=== PATIENT | male | born 1950 | race Caucasian/White ===

== ENCOUNTER 2017-06-05 11:04 | Emergency (ER) | payer MEDICARE, BC ==
[2017-06-05 11:34] VITALS: BP 137/78
[2017-06-05] MEDS ORDERED: Rabies Immune Globulin 10 ML* 150 UNIT/ML VIAL IM ONE (11:42)
[2017-06-05] MEDS ORDERED: Rabies Vaccine, PCEC INJ* 1 ml IM ONE (11:42)
--- NOTE | 2017-06-05 11:43 | UC ---
Bite Injury/Animal HPI - HPI Summary HPI Summary: here for rabies prophylaxis bat in house yesterday - History of Current Complaint Chief Complaint: UCBiteInjury Stated Complaint: RABIES EXPOSURE Time Seen by Provider: 06/05/17 11:42 Hx Obtained From: Patient - Allergies/Home Medications Allergies/Adverse Reactions: Allergies Allergy/AdvReac Type Severity Reaction Status Date / Time No Known Allergies Allergy Verified 10/08/16 17:53 PMH/Surg Hx/FS Hx/Imm Hx Previously Healthy: Yes - Surgical History Surgical History: None - Family History Known Family History: Positive: Hypertension - Social History Alcohol Use: Weekly Substance Use Type: None Smoking Status (MU): Never Smoked Tobacco - Immunization History Most Recent Influenza Vaccination: doesn't get Review of Systems Constitutional: Negative Skin: Negative Eyes: Negative ENT: Negative Respiratory: Negative Cardiovascular: Negative Gastrointestinal: Negative Genitourinary: Negative Motor: Negative Neurovascular: Negative Musculoskeletal: Negative Neurological: Negative Psychological: Negative All Other Systems Reviewed And Are Negative: Yes Physical Exam Triage Information Reviewed: Yes Vital Signs: Initial Vital Signs Temp 98.2 F 06/05/17 11:32 Pulse 50 06/05/17 11:32 Resp 16 06/05/17 11:32 BP 137/78 06/05/17 11:32 Pulse Ox 97 06/05/17 11:32 Vital Signs Reviewed: Yes Respiratory: Positive: Lungs clear, Normal breath sounds, No respiratory distress Cardiovascular: Positive: RRR, No Murmur Bite Injury Course/Dx - Differential Dx/Diagnosis Provider Diagnoses: rabies prophylaxis Discharge - Discharge Plan Condition: Stable Disposition: HOME Patient Education Materials: Rabies Immune Globulin (By injection), Rabies Vaccine (By injection) Referrals: Estrada Torres MD [Primary Care Provider] - Additional Instructions: Please review your discharge instructions. If your symptoms do not improve please call your primary care provider or return to urgent care.
[2017-06-05] MEDS ORDERED: Rabies VIRUS VACCINE, HDCV* 2.5 UNIT/ML 1 ML IM ONE (12:28)
== END 2017-06-05 12:30 | disposition home or self-care (01) ==
LOC: UCEAST 11:04
DX: Z20.3 Contact with and (suspected) exposure to rabies (principal)
CPT/HCPCS: 90375; 90471; 90675; 96372; 99211; G0463

== ENCOUNTER 2019-04-21 13:20 | Emergency (ER) | payer MEDICARE, BC ==
[2019-04-21 13:36] VITALS: BP 115/73
--- NOTE | 2019-04-21 13:48 | UC ---
Elbow Pain - HPI Summary HPI Summary: right elbow pain / swelling x 5 days pain is 4 out of 10 , worse by touch , better, with rest, and ice no known injury , back of the elbow is red, swollen , painful , warm to touch was getting better , but worse since yesterday and today no fever, no chills - History of Current Complaint Chief Complaint: UCSkin Stated Complaint: RT ELBOW PAIN Time Seen by Provider: 04/21/19 13:34 Hx Obtained From: Patient Mechanism of Injury: no injury Onset/Duration: Days - 5, Atraumatic Severity Initially: Mild Severity Currently: Mild Pain Intensity: 2 Location Of Pain: Is Discrete @ - right elbow Character: Aching Aggravating Factor(s): Movement Alleviating Factor(s): Rest Associated Signs And Symptoms: Positive: Swelling, Redness. Negative: Bruising , Fever, Weakness, Numbness/Tingling - Allergies/Home Medications Allergies/Adverse Reactions: Allergies Allergy/AdvReac Type Severity Reaction Status Date / Time No Known Allergies Allergy Verified 04/21/19 13:31 PMH/Surg Hx/FS Hx/Imm Hx Previously Healthy: Yes - Surgical History Surgical History: None Surgery Procedure, Year, and Place: DENIES - Family History Known Family History: Positive: Hypertension - Social History Alcohol Use: Weekly Alcohol Amount: Three drinks per week Substance Use Type: None Smoking Status (MU): Never Smoked Tobacco - Immunization History Most Recent Influenza Vaccination: doesn't get Review of Systems All Other Systems Reviewed And Are Negative: Yes Is Patient Immunocompromised?: No Physical Exam Triage Information Reviewed: Yes Appearance: Well-Appearing, No Pain Distress, Well-Nourished Vital Signs: Initial Vital Signs Temp 98.5 F 04/21/19 13:27 Pulse 59 04/21/19 13:27 Resp 18 04/21/19 13:27 BP 115/73 04/21/19 13:27 Pulse Ox 96 04/21/19 13:27 Vital Signs Reviewed: Yes Eye Exam: Normal Eyes: Positive: Conjunctiva Clear ENT: Positive: Normal ENT inspection, Hearing grossly normal Neck: Positive: Supple, Nontender, No Lymphadenopathy Respiratory: Positive: Chest non-tender, Lungs clear, Normal breath sounds Cardiovascular: Positive: RRR, No Murmur, Pulses Normal Musculoskeletal: Positive: Other: - right elbow: + erythema, swellig, tender to touch , warm to touch, good ROM Elbow Pain Course/Dx - Differential Dx/Diagnosis Provider Diagnosis: Olecranon bursitis of right elbow Discharge - Sign-Out/Discharge Documenting (check all that apply): Patient Departure All imaging exams completed and their final reports reviewed: No Studies - Discharge Plan Condition: Stable Disposition: HOME Prescriptions: Cephalexin CAP* [Keflex CAP*] 500 mg PO TID #30 cap Patient Education Materials: Elbow Bursitis (ED) Referrals: Margret Cain MD [Primary Care Provider] - 7 Days - Billing Disposition and Condition Condition: STABLE Disposition: Home
== END 2019-04-21 13:48 | disposition home or self-care (01) ==
LOC: UCEAST 13:20
DX: M70.21 Olecranon bursitis, right elbow (principal)
CPT/HCPCS: 99212; G0463